=== PATIENT | female | born 1990 | race Caucasian/White ===

== ENCOUNTER 2017-11-01 20:02 | Emergency (ER) | payer OTHER ==
[~2017-11-01] VITALS: Ht 165.1 cm; Wt 90.7 kg
[2017-11-01 20:02] VITALS: BP 115/73
[2017-11-01 21:40] LABS: BILIRUBIN,URINE NEG (NEG); CLARITY,URINE CLEAR; COLOR,URINE YELLOW; GLUCOSE,URINE NEG (NEG)
[2017-11-01 21:41] LABS: BACTERIA,URINE 0 /HPF (0-FEW); NITRITE,URINE NEG (NEG); RBC,URINE RARE /HPF (0-2); SQUAMOUS EPITHELIAL CELL,UR OCC /LPF; UROBILINOGEN,URINE 1 mg/dL (0.2 mg/dL)
[2017-11-01 22:06] LABS: BASO # 0.1 x10^3/uL (0.0-0.2); BASO % 1 % (0-3); EOS # 0.2 x10^3/uL (0.0-0.7); EOS % 2 % (0-3); HEMATOCRIT 38.4 % (36.0-47.0); HEMOGLOBIN 13.2 g/dL (12.0-15.5); LYMPH # 2.1 x10^3/uL (1.0-4.8); LYMPH % 20 % (24-48); MEAN CORPUSCULAR HEMOGLOBIN 30 pg (25-35); MEAN CORPUSCULAR HGB CONC 35 g/dL (31-37); MEAN CORPUSCULAR VOLUME 87 fL (79-100); MONO # 0.4 x10^3/uL (0.0-1.1); MONO % 4 % (0-9); NEUT # 7.6 x10^3uL (1.8-7.7); NEUT % 73 % (31-73); PLATELET COUNT 304 x10^3/uL (140-400); RED BLOOD COUNT 4.43 x10^6/uL (3.50-5.40); RED CELL DISTRIBUTION WIDTH 13.8 % (11.5-14.5); WHITE BLOOD COUNT 10.5 x10^3/uL (4.0-11.0)
[2017-11-01 22:21] LABS: ALBUMIN/GLOBULIN RATIO 0.9 (1.0-1.7); CALCIUM 8.9 mg/dL (8.5-10.1); CREATININE 0.6 mg/dL (0.6-1.0); GFR 120.8; POTASSIUM 3.7 mmol/L (3.5-5.1); TOTAL BILIRUBIN 0.5 mg/dL (0.2-1.0); TOTAL PROTEIN 8.4 g/dL (6.4-8.2)
--- NOTE | 2017-11-01 22:58 | RAD ---
LIMITED ABDOMINAL ULTRASOUND History: Right upper quadrant pain and nausea for 3 hours. Comparison: None. Procedure: Transabdominal ultrasound images are obtained. Findings: Visualized pancreas is unremarkable. Liver is increased in echogenicity in echogenicity. No focal hepatic masses are identified. Right hepatic lobe measures 17.8 cm in length. Gallbladder is mildly contracted. No gallbladder wall thickening, pericholecystic fluid, or cholelithiasis is seen. Common bile duct measures normally at 3 mm in diameter. Right kidney measures 12.2 cm in length. There is no evidence of stone or hydronephrosis. Visualized IVC demonstrates normal caliber. Impression: 1. Echogenic liver, compatible with fatty liver disease. 2. No evidence of cholelithiasis or cholecystitis. Electronically signed by: Be Evans MD (11/01/2017 10:55 PM) [facility]
[2017-11-01] MEDS ORDERED: NAPR-695 PO (23:29)
--- NOTE | 2017-11-01 23:29 | PHYS DOC ---
Adult General Chief Complaint Chief Complaint: ABDOMINAL PAIN HPI HPI Patient is a 27-year-old female who started having complaints of found epigastric abdominal pain that started today she also expressing some back pain. Patient denies any vomiting, diarrhea, unusual vaginal discharge, urinary symptoms. Patient also states that she had a little bit of bleeding from her umbilicus but that has stopped by the time to arrival to the ER. No history of trauma, no recent illnesses. Review of Systems Review of Systems Constitutional: Denies fever or chills [] HENT: Denies pain Respiratory: Denies cough or shortness of breath [] Cardiovascular: No chest pain GI: As per history of present illness : Denies dysuria or hematuria or vaginal discharge Musculoskeletal: As per history of present illness Integument: Denies rash or skin lesions [] Neurologic: Denies headache, focal weakness or sensory changes [] All other systems were reviewed and found to be within normal limits, except as documented in this note. Allergies Allergies Allergies Coded Allergies Type Severity Reaction Last Updated Verified No Known Drug Allergies 11/01/17 No Physical Exam Physical Exam Constitutional: Well developed, well nourished, no acute distress, non-toxic appearance. [] HENT: Normocephalic, atraumatic, Eyes: EOMI, conjunctiva normal, no discharge. [] Neck: Normal range of motion, trachea midline, no stridor. [] Cardiovascular:Heart rate regular rhythm, no murmur, equal pulses, normal perfusion Lungs & Thorax: Bilateral breath sounds clear to auscultation no tachypnea Abdomen: Bowel sounds normal, soft, no is distention, no masses, no pulsatile masses. Tenderness to palpation right upper quadrant without guarding or rebound. Area of umbilicus with no active bleeding, no signs of laceration, no signs of infection Skin: Warm, dry, no erythema, no rash. [] Back: No tenderness, no CVA tenderness. [] Extremities: No tenderness, no cyanosis, no clubbing, ROM intact, no edema. [] Neurologic: Alert and oriented X 3, normal motor function, ambulates in the emergency department with normal gait and without assistance, no focal deficits noted. [] Psychologic: Affect normal, judgement normal, mood normal. [] Current Patient Data Lab Results Laboratory Tests Test 11/01/17 20:50 11/01/17 20:59 11/01/17 21:52 Urine Collection Type Unknown Urine Color Yellow Urine Clarity Clear Urine pH 6.0 Urine Specific [place] >=1.030 Urine Protein Neg (NEG-TRACE) Urine Glucose (UA) Neg mg/dL (NEG) Urine Ketones (Stick) Neg mg/dL (NEG) Urine Blood Small (NEG) Urine Nitrite Neg (NEG) Urine Bilirubin Neg (NEG) Urine Urobilinogen Dipstick 1 mg/dL (0.2 mg/dL) Urine Leukocyte Esterase Neg (NEG) Urine RBC Rare /HPF (0-2) Urine WBC 1-4 /HPF (0-4) Urine Squamous Epithelial Cells Occ /LPF Urine Bacteria 0 /HPF (0-FEW) Urine Mucus Slight /LPF POC Urine HCG, Qualitative hcg negative (Negative) White Blood Count 10.5 x10^3/uL (4.0-11.0) Red Blood Count 4.43 x10^6/uL (3.50-5.40) Hemoglobin 13.2 g/dL (12.0-15.5) Hematocrit 38.4 % (36.0-47.0) Mean Corpuscular Volume 87 fL (79-100) Mean Corpuscular Hemoglobin 30 pg (25-35) Mean Corpuscular Hemoglobin Concent 35 g/dL (31-37) Red Cell Distribution Width 13.8 % (11.5-14.5) Platelet Count 304 x10^3/uL (140-400) Neutrophils (%) (Auto) 73 % (31-73) Lymphocytes (%) (Auto) 20 % (24-48) L Monocytes (%) (Auto) 4 % (0-9) Eosinophils (%) (Auto) 2 % (0-3) Basophils (%) (Auto) 1 % (0-3) Neutrophils # (Auto) 7.6 x10^3uL (1.8-7.7) Lymphocytes # (Auto) 2.1 x10^3/uL (1.0-4.8) Monocytes # (Auto) 0.4 x10^3/uL (0.0-1.1) Eosinophils # (Auto) 0.2 x10^3/uL (0.0-0.7) Basophils # (Auto) 0.1 x10^3/uL (0.0-0.2) Sodium Level 139 mmol/L (136-145) Potassium Level 3.7 mmol/L (3.5-5.1) Chloride Level 103 mmol/L (98-107) Carbon Dioxide Level 26 mmol/L (21-32) Anion Gap 10 (6-14) Blood Urea Nitrogen 11 mg/dL (7-20) Creatinine 0.6 mg/dL (0.6-1.0) Estimated GFR (Cockcroft-Gault) 120.8 BUN/Creatinine Ratio 18 (6-20) Glucose Level 91 mg/dL (70-99) Calcium Level 8.9 mg/dL (8.5-10.1) Total Bilirubin 0.5 mg/dL (0.2-1.0) Aspartate Amino Transferase (AST) 14 U/L (15-37) L Alanine Aminotransferase (ALT) 21 U/L (14-59) Alkaline Phosphatase 79 U/L (46-116) Total Protein 8.4 g/dL (6.4-8.2) H Albumin 4.0 g/dL (3.4-5.0) Albumin/Globulin Ratio 0.9 (1.0-1.7) L Lipase 88 U/L (73-393) EKG EKG [] Radiology/Procedures Radiology/Procedures Ultrasound report shows no cholecystitis or cholelithiasis but evidence of fatty liver[] Course & Med Decision Making Course & Med Decision Making Pertinent Labs and Imaging studies reviewed. (See chart for details) 2322 patient is in no distress, patient feels back to baseline. Labs and imaging has been discussed with the patient and the need for close follow-up has been explained, patient agrees to follow-up as directed. Strict return precautions have been discussed with the patient who agrees to follow-up as directed. Patient voices understanding of instructions [] Dragon Disclaimer Dragon Disclaimer This electronic medical record was generated, in whole or in part, using a voice recognition dictation system. Departure Departure: Impression: Primary Impression: Abdominal pain Additional Impression: Fatty liver Disposition: 01 HOME, SELF-CARE Condition: STABLE Patient Instructions: Abdominal Pain (Nonspecific) Additional Instructions: Please follow-up with your doctor or at one of the clinics in the list provided to you for recheck and reevaluation in one to 2 days. If your pain worsens or new concerning symptoms develop or you do not have access to a doctor please return to the ED for recheck and reevaluation Scripts Naproxen (NAPROXEN) 375 Mg Tablet 1 TAB PO TID for 3 Days, #9 TAB 5 Refills Prov: Roman GAFFNEY MD 11/01/17 Problem Qualifiers Roman GAFFNEY MD Nov 01, 2017 23:29
== END 2017-11-01 23:30 | disposition home or self-care (01) ==
LOC: ER 20:02
DX: K76.0 Fatty (change of) liver, not elsewhere classified (principal)
CPT/HCPCS: 36415; 76705; 80053; 81001; 81025; 83690; 85025; 99285-25

== ENCOUNTER 2018-01-08 04:31 | Emergency (ER) | payer OTHER ==
[~2018-01-08] VITALS: Ht 165.1 cm; Wt 90.7 kg
[~2018-01-08 04:31] MED LIST: NAPR-695 PO
[2018-01-08 04:32] VITALS: BP 120/74
--- NOTE | 2018-01-08 05:00 | PHYS DOC ---
Past History Past Medical History: No Pertinent History Past Surgical History: No Surgical History Alcohol Use: None Drug Use: None Adult General Chief Complaint Chief Complaint: SORE THROAT HPI HPI Patient is a 27 year old female who presents with complaint of sore throat for the past 3 days. Patient states that her symptoms have worsened this morning. The patient states she is having pain with swallowing. Patient denies fever or cough. Patient has not taken medications to help with her symptoms. Denies any known sick contacts. Patient rates her pain as 7 out of 10 and describes it as throbbing. Patient states that she started getting pain in both ears tonight. Review of Systems Review of Systems Constitutional: Denies fever or chills [] Eyes: Denies change in visual acuity, redness, or eye pain [] HENT: Sore throat, ear pain[] Respiratory: Denies cough or shortness of breath [] Cardiovascular: Denies chest pain or edema[] GI: Denies abdominal pain, nausea, vomiting, bloody stools or diarrhea [] : Denies dysuria or hematuria [] Musculoskeletal: Denies back pain or joint pain [] Integument: Denies rash or skin lesions [] Neurologic: Denies headache, focal weakness or sensory changes [] All other systems were reviewed and found to be within normal limits, except as documented in this note. Allergies Allergies Allergies Coded Allergies Type Severity Reaction Last Updated Verified No Known Drug Allergies 11/01/17 No Physical Exam Physical Exam Constitutional: Alert, afebrile, appears in moderate discomfort. [] HENT: Normocephalic, atraumatic, bilateral external ears normal, oropharynx erythematous, petechial hemorrhages on soft palate, no oral exudates, nose normal. [] Eyes: PERRLA, EOMI, conjunctiva normal, no discharge. [] Neck: Normal range of motion, tender anterior cervical lymphadenopathy bilaterally, supple, no stridor. [] Cardiovascular:Heart rate regular rhythm, no murmur [] Lungs & Thorax: Bilateral breath sounds clear to auscultation [] Abdomen: Bowel sounds normal, soft, no tenderness, no masses, no pulsatile masses. [] Skin: Warm, dry, no erythema, no rash. [] Back: No tenderness, no CVA tenderness. [] Extremities: No tenderness, no cyanosis, no clubbing, ROM intact, no edema. [] Neurologic: Alert and oriented X 3, normal motor function, normal sensory function, no focal deficits noted. [] Current Patient Data Vital Signs Vital Signs Date Time Temp Pulse Resp B/P (MAP) Pulse Ox O2 Delivery O2 Flow Rate FiO2 01/08/18 04:32 98.9 92 20 95 Room Air Lab Results Rapid strep: Positive EKG EKG Not performed[] Radiology/Procedures Radiology/Procedures Not performed[] Course & Med Decision Making Course & Med Decision Making Pertinent Labs and Imaging studies reviewed. (See chart for details) Rapid strep test positive in the emergency department. Patient elected to receive Bicillin LA in the emergency department which was given. Patient also given Decadron to help with pharyngeal inflammation and pain. Advised to continue on Tylenol and ibuprofen as needed at home. Recommended follow-up with primary doctor in 3-4 days of symptoms are not improving and return emergency department for any worsening symptoms. Patient was understanding and in agreement with treatment plan. Dragon Disclaimer Dragon Disclaimer This electronic medical record was generated, in whole or in part, using a voice recognition dictation system. Departure Departure: Impression: Primary Impression: Strep pharyngitis Disposition: 01 HOME, SELF-CARE Condition: IMPROVED Referrals: NUZHAT NARANJO MD (PCP) Patient Instructions: Strep Throat Additional Instructions: Follow-up with Dr. Naranjo in 3-4 days if symptoms are not improving. Return to emergency department for any worsening symptoms. MELANIA VAUGHAN MD January 08, 2018 05:00
[2018-01-08] MEDS ORDERED: PENICILLIN G BENZATHINE LA 1,200,000 UNIT/2 ML DISP.SYRIN. IM ONE (05:30)
[2018-01-08] MEDS ORDERED: DEXAMETHASONE SOD PHOS 10 MG/ML VIAL PO ONE (05:30)
== END 2018-01-08 06:00 | disposition home or self-care (01) ==
LOC: ER 04:31
DX: J02.0 Streptococcal pharyngitis (principal); H92.03 Otalgia, bilateral
CPT/HCPCS: 87880; 96372; 99283; J0561; J1100

== ENCOUNTER 2018-05-16 17:58 | Emergency (ER) | payer SELFPAY ==
[~2018-05-16] VITALS: Ht 165.1 cm; Wt 90.7 kg
[2018-05-16 18:21] VITALS: BP 152/89
[2018-05-16] MEDS ORDERED: DEXAMETHASONE 4 MG TABLET PO ONE (18:45)
[2018-05-16] MEDS ORDERED: ONDANSETRON ODT 4 MG TAB.RAPDIS PO ONE (18:45)
[2018-05-16] MEDS ORDERED: AMOX1TAB61 PO (18:46)
[2018-05-16] MEDS ORDERED: PRED20TA PO (18:46)
--- NOTE | 2018-05-16 18:46 | PHYS DOC ---
Past History Past Medical History: No Pertinent History Past Surgical History: No Surgical History Alcohol Use: None Drug Use: None Adult General Chief Complaint Chief Complaint: EARACHE/EAR PAIN HPI HPI Patient is a 27-year-old otherwise healthy female who presents with a one-day history of left ear pain. Patient describes pain as pressure and notes a severity of 7 out of 10. Patient denies any radiation of the pain. Patient notes that she has had nasal congestion, sore throat and a cough since Saturday. Patient denies any tinnitus, dizziness, trauma, head pain, or change in vision. Patient notes she had a fever of 101F 2 days ago which she treated with Tylenol. Reports fever has improved since. Patient notes she took Tylenol today for the ear pain without relief. She notes she is currently on her menstrual period. Patient seen earlier today at [facility] for the left ear pain patient notes she was not prescribed anything and just told to take [id number] decongestants. Review of Systems Review of Systems Constitutional: Reports fever or chills which is now resolved [] Eyes: Denies change in visual acuity, redness, or eye pain [] HENT: Notes nasal congestion and sore throat, reports earache Respiratory: Notes cough. Denies shortness of breath [] Cardiovascular: Denies chest pain or palpitations[] GI: Denies abdominal pain, vomiting, bloody stools or diarrhea [] : Denies dysuria or hematuria [] Musculoskeletal: Denies back pain or joint pain [] Integument: Denies rash or skin lesions [] Neurologic: Notes headache. Denies focal weakness or sensory changes [] Complete systems were reviewed and found to be within normal limits, except as documented in this note. Current Medications Current Medications Current Medications Medications (Trade) Dose Ordered Sig/[facility] Start Time Stop Time Status Last Admin Dose Admin Dexamethasone (Decadron) 10 mg 1X ONCE 05/16/18 18:45 05/16/18 18:46 Ondansetron HCl (Zofran Odt) 4 mg 1X ONCE 05/16/18 18:45 05/16/18 18:46 Allergies Allergies Allergies Coded Allergies Type Severity Reaction Last Updated Verified No Known Drug Allergies 11/01/17 No Physical Exam Physical Exam Constitutional: Well developed, well nourished, no acute distress, non-toxic appearance. [] HENT: Normocephalic, atraumatic. Right ear nonpainful, TM intact nonerythematous , clear. Left ear no pain in external canal, TM slightly erythematous, middle ear fluid looks slightly cloudy. Oropharynx moist, no oral exudates, nose normal. [] Eyes: PERRL, EOMI, conjunctiva normal, no discharge. [] Neck: Normal range of motion, no tenderness, supple, no stridor. [] Cardiovascular:Heart rate regular rhythm, no murmur [] Lungs & Thorax: Bilateral breath sounds clear to auscultation [] Skin: Warm, dry, no erythema, no rash. [] Extremities: No tenderness,ROM intact, no edema. [] Neurologic: Alert and oriented X 3, no focal deficits noted. [] Psychologic: Affect normal, judgement normal, mood normal. [] Current Patient Data Vital Signs Vital Signs Date Time Temp Pulse Resp B/P (MAP) Pulse Ox O2 Delivery O2 Flow Rate FiO2 05/16/18 18:21 Room Air 05/16/18 18:21 98.6 55 20 99 EKG EKG [] Radiology/Procedures Radiology/Procedures [] Course & Med Decision Making Course & Med Decision Making 27-year-old otherwise healthy female presenting with a one-day history of left ear pain. Patient notes she has had URI-like symptoms since Saturday. Patient seen previously today at [facility]. Left ear shows mildly increased erythema and mild clouding of middle ear fluid. Patient given dose of Decadron in the ED and prescribed a 4 day course of steroids for symptom control. Patient also given 1 dose of Zofran ODT for nausea in the ED. Patient prescribed empiric antibiotics with instructions to watch and wait 48 hrs. If symptoms resolved, patient is to hold antibiotics. If symptoms persist, patient is to take antibiotics as prescribed. Patient stable for discharge with outpatient follow-up with PCP. Discussed findings and plan with patient, who acknowledges understanding and agreement. [] Dragon Disclaimer Dragon Disclaimer This electronic medical record was generated, in whole or in part, using a voice recognition dictation system. Departure Departure: Impression: Primary Impression: Otalgia of left ear Disposition: 01 HOME, SELF-CARE Condition: STABLE Referrals: NUZHAT NARANJO MD (PCP) Patient Instructions: Otalgia Additional Instructions: Hold antibiotics for 48 hours. If symptoms worsen or for fever > 100.3 F after 48 hours then start antibiotics as prescribed. Scripts Prednisone (PREDNISONE) 20 Mg Tablet 1 TAB PO BID, #8 TAB Start on 05/17/18 Prov: CRISTHIAN PAREKH DO 05/16/18 Amoxicillin/Potassium Clav (AUGMENTIN 875-125 TABLET) 1 Each Tablet 1 TAB PO BID, #14 TAB Prov: CRISTHIAN PAREKH DO 05/16/18 CRISTHIAN PAREKH DO May 16, 2018 18:46
== END 2018-05-16 19:00 | disposition home or self-care (01) ==
LOC: ER 17:58
DX: H92.02 Otalgia, left ear (principal); J02.9 Acute pharyngitis, unspecified; R09.81 Nasal congestion
CPT/HCPCS: 99283; J8540; Q0162

== ENCOUNTER 2018-06-30 16:14 | Emergency (ER) | payer SELFPAY ==
[~2018-06-30] VITALS: Ht 157.5 cm; Wt 98.6 kg
[~2018-06-30 16:14] MED LIST changes: +AMOX1TAB61 PO; +PRED20TA PO
[2018-06-30] MEDS ORDERED: IV NORMAL SALINE 1,000ML 1,000 ML IV SCH (16:41)
[2018-06-30] MEDS ORDERED: KETOROLAC 30 MG/ML VIAL. IV ONE (17:15)
[2018-06-30] MEDS ORDERED: ONDANSETRON PF 4 MG/2 ML VIAL. IV ONE (17:15)
[2018-06-30 17:18] LABS: BASO % 0 % (0-3); EOS % 0 % (0-3); HEMATOCRIT 39.8 % (36.0-47.0); HEMOGLOBIN 13.5 g/dL (12.0-15.5); LYMPH # 0.9 x10^3/uL (1.0-4.8); LYMPH % 11 % (24-48); MEAN CORPUSCULAR HEMOGLOBIN 29 pg (25-35); MEAN CORPUSCULAR HGB CONC 34 g/dL (31-37); MEAN CORPUSCULAR VOLUME 87 fL (79-100); MONO # 0.3 x10^3/uL (0.0-1.1); MONO % 4 % (0-9); NEUT # 6.4 x10^3uL (1.8-7.7); NEUT % 84 % (31-73); PLATELET COUNT 305 x10^3/uL (140-400); RED BLOOD COUNT 4.59 x10^6/uL (3.50-5.40); RED CELL DISTRIBUTION WIDTH 13.1 % (11.5-14.5); WHITE BLOOD COUNT 7.6 x10^3/uL (4.0-11.0)
[2018-06-30 17:21] LABS: INFLUENZA A PATIENT NEGATIVE (NEGATIVE); INFLUENZA B PATIENT NEGATIVE (NEGATIVE)
--- NOTE | 2018-06-30 17:39 | PHYS DOC ---
Past History Past Medical History: No Pertinent History Past Surgical History: No Surgical History Alcohol Use: None Drug Use: None Adult General Chief Complaint Chief Complaint: NAUSEA/VOMITING/DIARRHEA HPI HPI Patient is a 27 year old female who presents with complaining of nausea and vomiting and diarrhea since this morning. Patient states she woke up at 4 AM and had total of 4 episodes of vomiting and 5 or 6 episodes of nonbloody diarrhea. Patient complaining of sore throat, earache, body ache, generalized weakness and chills without fever. Patient denies urinary symptoms, vaginal bleeding or discharge, . Patient complaining of upper abdominal pain during episodes of vomiting but denies constant abdominal pain. Review of Systems Review of Systems Constitutional: Denies fever, reports chills [] Eyes: Denies change in visual acuity, redness, or eye pain [] HENT: Reports nasal congestion or sore throat Respiratory: Reports cough and shortness of breath Cardiovascular: No additional information not addressed in HPI [] GI: Reports abdominal pain, nausea, vomiting, diarrhea [] : Denies dysuria or hematuria [] Musculoskeletal: Denies back pain or joint pain [] Integument: Denies rash or skin lesions [] Neurologic: Denies headache, focal weakness or sensory changes [] Endocrine: Denies polyuria or polydipsia [] All other systems were reviewed and found to be within normal limits, except as documented in this note. Current Medications Current Medications Current Medications Medications (Trade) Dose Ordered Sig/[facility] Start Time Stop Time Status Last Admin Dose Admin Ketorolac Tromethamine (Toradol 30mg Vial) 30 mg 1X ONCE 06/30/18 17:15 06/30/18 17:16 DC 06/30/18 17:08 30 MG Ondansetron HCl (Zofran) 4 mg 1X ONCE 06/30/18 17:15 06/30/18 17:16 DC 06/30/18 17:08 4 MG Sodium Chloride 1,000 ml @ 1,000 mls/hr Q1H 06/30/18 16:41 06/30/18 17:40 06/30/18 17:08 1,000 MLS/HR Allergies Allergies Allergies Coded Allergies Type Severity Reaction Last Updated Verified No Known Drug Allergies 11/01/17 No Physical Exam Physical Exam Constitutional: Well developed, well nourished, moderate distress, non-toxic appearance, febrile. [] HENT: Normocephalic, atraumatic, bilateral external ears normal, oropharynx dry , no oral exudates, nose normal. [] Eyes: PERRLA, EOMI, conjunctiva normal, no discharge. [] Neck: Normal range of motion, no tenderness, supple, no stridor. [] Cardiovascular: Tachycardia, no murmur [] Lungs & Thorax: Bilateral breath sounds clear to auscultation [] Abdomen: Bowel sounds normal, soft, no tenderness, no masses, no pulsatile masses. [] Skin: Warm, dry, no erythema, no rash. [] Back: No tenderness, no CVA tenderness. [] Extremities: No tenderness, no cyanosis, no clubbing, ROM intact, no edema. [] Neurologic: Alert and oriented X 3, normal motor function, normal sensory function, no focal deficits noted. [] Psychologic: Affect normal, judgement normal, mood normal. [] Current Patient Data Vital Signs Vital Signs Date Time Temp Pulse Resp B/P (MAP) Pulse Ox O2 Delivery O2 Flow Rate FiO2 06/30/18 16:15 100.1 104 24 124/73 (90) 96 Room Air Lab Results Laboratory Tests Test 06/30/18 17:00 White Blood Count 7.6 x10^3/uL (4.0-11.0) Red Blood Count 4.59 x10^6/uL (3.50-5.40) Hemoglobin 13.5 g/dL (12.0-15.5) Hematocrit 39.8 % (36.0-47.0) Mean Corpuscular Volume 87 fL (79-100) Mean Corpuscular Hemoglobin 29 pg (25-35) Mean Corpuscular Hemoglobin Concent 34 g/dL (31-37) Red Cell Distribution Width 13.1 % (11.5-14.5) Platelet Count 305 x10^3/uL (140-400) Neutrophils (%) (Auto) 84 % (31-73) H Lymphocytes (%) (Auto) 11 % (24-48) L Monocytes (%) (Auto) 4 % (0-9) Eosinophils (%) (Auto) 0 % (0-3) Basophils (%) (Auto) 0 % (0-3) Neutrophils # (Auto) 6.4 x10^3uL (1.8-7.7) Lymphocytes # (Auto) 0.9 x10^3/uL (1.0-4.8) L Monocytes # (Auto) 0.3 x10^3/uL (0.0-1.1) Eosinophils # (Auto) 0.0 x10^3/uL (0.0-0.7) Basophils # (Auto) 0.0 x10^3/uL (0.0-0.2) EKG EKG [] Radiology/Procedures Radiology/Procedures [] Impressions: Diagnosis Viral gastroenteritis Course & Med Decision Making Course & Med Decision Making Pertinent Labs and Imaging studies are pending. @1800: Evaluation of patient in ER showed 27-year-old female patient with complaining of nausea and vomiting and diarrhea and cough and congestion and sore throat since this morning. Patient had negative flu test. Patient had temperature of 100.1 and tachycardia. Patient treated with IV fluid and Zofran and Toradol and felt better. UA and CMP is pending. Patient care transferred to Dr. Noriega at 1800. I explained to the patient the results of the blood work she feels so much better requested to go home I advised her to continue to drink and water and Gatorade to take Zofran for nausea and vomiting and ibuprofen and Tylenol for fever Dragon Disclaimer Dragon Disclaimer This electronic medical record was generated, in whole or in part, using a voice recognition dictation system. Departure Departure: Disposition: 01 HOME, SELF-CARE Condition: GOOD Referrals: NUZHAT NARANJO MD (PCP) Scripts Ondansetron (ZOFRAN ODT) 4 Mg Tab.rapdis 1 TAB SL Q8HRS for vomiting, #15 TAB Prov: CHINO CERVANTES MD 06/30/18 JOAN ELIZONDO MD Jun 30, 2018 17:39 CHINO CERVANTES MD Jun 30, 2018 19:15
[2018-06-30 18:27] LABS: ALBUMIN 3.5 g/dL (3.4-5.0); ALBUMIN/GLOBULIN RATIO 0.9 (1.0-1.7); CALCIUM 8.2 mg/dL (8.5-10.1); CREATININE 0.6 mg/dL (0.6-1.0); GFR 120.8; POTASSIUM 3.3 mmol/L (3.5-5.1); TOTAL BILIRUBIN 0.8 mg/dL (0.2-1.0); TOTAL PROTEIN 7.3 g/dL (6.4-8.2)
[2018-06-30] MEDS ORDERED: ONDA4TAB10 SL (19:14)
[2018-06-30 19:28] VITALS: BP 120/81
== END 2018-06-30 19:28 | disposition home or self-care (01) ==
LOC: ER 16:14
DX: R11.2 Nausea with vomiting, unspecified (principal); R19.7 Diarrhea, unspecified; J02.9 Acute pharyngitis, unspecified; R10.10 Upper abdominal pain, unspecified; R53.1 Weakness
CPT/HCPCS: 36415; 80053; 83690; 85025; 87804; 96361; 96374; 96375; 99284; J1885; J2405; J7030

== ENCOUNTER 2021-03-23 12:01 | Emergency (ER) | payer SELFPAY ==
[~2021-03-23] VITALS: Ht 157.5 cm; Wt 98.6 kg
[~2021-03-23 12:01] MED LIST changes: +ONDA4TAB10 SL
[2021-03-23 12:13] VITALS: BP 142/83
--- NOTE | 2021-03-23 13:22 | PHYS DOC ---
Past History Past Medical History: Asthma (LUIS F CONTRERAS APRN) Past Surgical History: (LUIS F CONTRERAS APRN) Alcohol Use: None Drug Use: None (LUIS F CONTRERAS APRN) General Adult EDM: Chief Complaint: COUGH HPI: HPI: Patient is a 30-year-old female being seen in the ER today for multiple complaints. Patient is complaining of fever, productive cough, shortness of breath, diarrhea, nasal congestion and drainage, midsternal chest pain that started last night. Patient describes her chest pain as a tightness that is a constant pain. She rates it 10 out of 10. It does not radiate. Patient reports positive sick exposures. She reports that her sister who was 32 years old suddenly in her sleep last week they are doing an autopsy, her sister did have a positive Covid exposure. Patient denies any family history of heart disease. Patient's room air saturation is 96%. She is febrile in the ER. Patient reports ability to eat and drink okay. She denies nausea, vomiting, loss of taste or smell. She did not get her COVID-19 vaccine. (LUIS F CONTRERAS APRN) Review of Systems: Review of Systems: 14 body systems of the review of systems have been reviewed. See HPI for pertinent positive and negative responses, otherwise all other systems are n egative, nonpertinent or noncontributory (LUIS F CONTRERAS APRN) Allergies: Allergies: Allergies Coded Allergies Type Severity Reaction Last Updated Verified No Known Drug Allergies 11/01/17 No (LUIS F CONTRERAS APRN) Physical Exam: PE: Constitutional: Well developed, well nourished, no acute distress, non-toxic appearance. [] HENT: Normocephalic, atraumatic, bilateral external ears normal, oropharynx moist, no oral exudates, pharynx is erythematous, postnasal drainage, cobblestoning appearance, swollen nasal turbinates with drainage. [] Eyes: PERRL, conjunctiva normal, no discharge. [] Neck: Normal range of motion, no tenderness, supple, no stridor, no cervical lymphadenopathy. [] Cardiovascular:Heart rate regular rhythm, no murmur, chest pain is reproducible [] Lungs & Thorax: Bilateral breath sounds clear to auscultation [] Abdomen: Bowel sounds normal, soft, no tenderness, no masses, no pulsatile masses. [] Skin: Warm, dry, no erythema, no rash. [] Back: Normal range of motion Extremities: No tenderness, no cyanosis, no clubbing, ROM intact, no edema. [] Neurologic: Alert and oriented X 3, normal motor function, normal sensory function, no focal deficits noted. [] Psychologic: Affect normal, judgement normal, mood normal. [] (LUIS F CONTRERAS APRN) Current Patient Data: Vital Signs: Vital Signs Date Time Temp Pulse Resp B/P (MAP) Pulse Ox O2 Delivery O2 Flow Rate FiO2 03/23/21 12:13 101.4 96 20 142/83 96 Room Air (LUIS F CONTRERAS APRN) EKG: EKG: EKG performed at 1325 by ER staff showed sinus rhythm, no STEMI read by Dr. Gonzalez at 1332 [] (LUIS F CONTRERAS APRN) Radiology/Procedures: Radiology/Procedures: PROCEDURE: PORTABLE CHEST 1V AP chest. HISTORY: Short of breath AP view was taken of the chest. Patient's taken a poor inspiration. There are no acute infiltrates. There is no effusion. IMPRESSION: 1. Poor inspiration. 2. No acute infiltrates. Electronically signed by: Reuben Penaloza MD (03/23/2021 1:40 PM) [id number] DICTATED AND SIGNED BY: REUBEN PENALOZA MD DATE: 03/23/21 1339 CC: NUZHAT NARANJO MD; EMERGENCY,DEPARTMENT; LUIS F CONTRERAS APRN ~MTH0 0 [] (LUIS F CONTRERAS APRN) Heart Score: C/O Chest Pain: Yes HEART Score for Chest Pain: HEART Score for Chest Pain Response (Comments) Value History Slighlty/Non-Suspicious 0 ECG Normal 0 Age < 45 0 Risk Factors No Risk Factors 0 Troponin < Normal Limit 0 Total 0 Risk Factors: Risk Factors: DM, Current or recent (<one month) smoker, HTN, HLP, family history of CAD, obesity. Risk Scores: Score 0 - 3: 2.5% MACE over next 6 weeks - Discharge Home Score 4 - 6: 20.3% MACE over next 6 weeks - Admit for Clinical Observation Score 7 - 10: 72.7% MACE over next 6 weeks - Early Invasive Strategies (LUIS F CONTRERAS APRN) Course & Med Decision Making: Course & Med Decision Making Pertinent Labs and Imaging studies reviewed. (See chart for details) Patient is a 30-year-old female being seen in the ER for multiple complaints including fever, cough, shortness of breath, chest pain, diarrhea. Blood work was performed in the ER. Patient was Covid tested and this is pending. Chest x-ray was performed that showed no acute findings. Blood work was unremarkable. Patient treated with Tylenol and ibuprofen. Patient has a history of asthma. She is given a DuoNeb treatment in the ER today. I discussed with patient all findings and diagnostic testing as well as the need to follow-up with PCP for further evaluation and treatment or return to the ER if any new or worsening symptoms. Strict return precautions were also discussed at length. Patient voiced understanding and agreement with the plan. Patient is hemodynamically stable at the time of disposition. (LUIS F CONTRERAS APRN) Dragon Disclaimer: Dragon Disclaimer: This electronic medical record was generated, in whole or in part, using a voice recognition dictation system. (LUIS F CONTRERAS APRN) Attending Co-Sign The patient was seen and interviewed as well as examined at the bedside. The chart was reviewed. The case was discussed. Agree with the plan of care. (LY GONZALEZ DO) Departure Departure: Impression: Primary Impression: Cough Additional Impression: Person under investigation for COVID-19 Disposition: 01 HOME / SELF CARE / HOMELESS Condition: GOOD Referrals: NUZHAT NARANJO MD (PCP) Patient Instructions: Cough, Adult Additional Instructions: You were seen for shortness of breath, cough, fever, diarrhea. Your physical exam was reassuring. Your chest x-ray was normal. Your blood work was unremarkable. We tested you for COVID-19 but this test does not come back for 1 to 2 days. In the meantime you will need to quarantine yourself at home away from all other individuals, especially those who are elderly or have any other chronic health issues or any one with immunocompromise status. You can take Tylenol or ibuprofen for your pain or fevers. Please make sure that you are taking your asthma medications as directed. If you continue to have diarrhea you may take Imodium [id number]. You should return to the ER if you develop worsening cough, shortness of breath, chest pain, or any other new or concerning symptoms. If your test does come back positive we will need to quarantine yourself for 10 days until symptom free. You should make sure to drink plenty of fluids and get plenty of rest. EMERGENCY DEPARTMENT GENERAL DISCHARGE INSTRUCTIONS Thank you for coming to [facility] (ED) today and trusting us with you care. We trust that you had a positivie experience in our Emergency Department. If you wish to speak to the department management, you may call the director at [phone]. YOUR FOLLOW UP INSTRUCTIONS ARE FOLLOWS: 1. Do you have a private Doctor? If you do not have a private doctor, please ask for a resource list of physicians or clinics that may be able to assist you with follow up care. 2. The Emergency Physician has interpreted your x-rays. The X-Ray specialist will also review them. If there is a change in the findings, you will be notified in 48 hours when at all possible. 3. A lab test or culture has been done, your results will be reviewed and you will be notified if you need a change in treatment. ADDITIONAL INSTRUCTIONS AND INFORMATION: 1. Your care today has been supervised by a physician who is specially trained in emergency care. Many problems require more than one evaluation for a complete diagnosis and treatment. We recommend that you schedule your follow up appointment as recommended to ensure complete treatment of you illness or injury. If you are unable to obtain follow up care and continue to have a problem, or if your condition worsens, we recommend that you return to the ED. 2. We are not able to safely determine your condition over the phone nor are we able to give sound medical advice over the phone. For these safety reasons, if you call for medical advice we will ask you to come to the ED for further evaluation. 3. If you have any questions regarding these discharge instructions please call the ED at [phone]. SAFETY INFORMATION: In the interest of safety, wellness, and injury prevention; we encourage you to wear your sealbelt, if you smoke; quite smoking, and we encourage family to use a protective helmet for bicycling and other sporting events that present an increased risk for head injury. IF YOUR SYMPTOMS WORSEN OR NEW SYMPTOMS DEVELOP, OR YOU HAVE CONCERNS ABOUT YOUR CONDITION; OR IF YOUR CONDITION WORSENS WHILE YOU ARE WAITING FOR YOUR FOLLOW UP A PPOINTMENT; EITHER CONTACT YOUR PRIMARY CARE DOCTOR, THE PHYSICIAN WHOSE NAME AND NUMBER YOU WERE GIVEN, OR RETURN TO THE ED IMMEDIATELY. LUIS F CONTRERAS APRN Mar 23, 2021 13:22 LY GONZALEZ DO Mar 24, 2021 18:07
[2021-03-23] MEDS ORDERED: ACETAMINOPHEN 325 MG TABLET PO ONE (13:30)
[2021-03-23] MEDS ORDERED: IBUPROFEN 600 MG TABLET. PO ONE (13:30)
--- NOTE | 2021-03-23 13:37 | EKG ---
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
--- NOTE | 2021-03-23 13:42 | RAD ---
AP chest. HISTORY: Short of breath AP view was taken of the chest. Patient's taken a poor inspiration. There are no acute infiltrates. T here is no effusion. IMPRESSION: 1. Poor inspiration. 2. No acute infiltrates. Electronically signed by: Reuben Penaloza MD (03/23/2021 1:40 PM) [id number]
[2021-03-23 13:52] LABS: BASO % 1 % (0-3); EOS # 0.1 x10^3/uL (0.0-0.7); EOS % 2 % (0-3); HEMATOCRIT 37.9 % (36.0-47.0); HEMOGLOBIN 12.6 g/dL (12.0-15.5); LYMPH # 0.8 x10^3/uL (1.0-4.8); LYMPH % 14 % (24-48); MEAN CORPUSCULAR HEMOGLOBIN 29 pg (25-35); MEAN CORPUSCULAR HGB CONC 33 g/dL (31-37); MEAN CORPUSCULAR VOLUME 89 fL (79-100); MONO # 0.5 x10^3/uL (0.0-1.1); MONO % 9 % (0-9); NEUT # 4.4 x10^3uL (1.8-7.7); NEUT % 75 % (31-73); PLATELET COUNT 252 x10^3/uL (140-400); RED BLOOD COUNT 4.29 x10^6/uL (3.50-5.40); RED CELL DISTRIBUTION WIDTH 13.4 % (11.5-14.5); WHITE BLOOD COUNT 5.8 x10^3/uL (4.0-11.0)
[2021-03-23 13:58] LABS: CALCIUM 8.8 mg/dL (8.5-10.1); CREATININE 0.7 mg/dL (0.6-1.0); GFR 98.9; POTASSIUM 4.1 mmol/L (3.5-5.1)
[2021-03-23] MEDS ORDERED: IPRATRPIUM/ALBUTEROL 0.5/2.5MG 3 ML NEBU. NEB ONE (14:30)
--- NOTE | 2021-03-24 16:09 | NUR ---
IP: Informed pt of positive covid test and the need to quarantine for 10 days. Pt verbalized understanding
== END 2021-03-23 14:45 | disposition home or self-care (01) ==
LOC: ER 12:01
DX: U07.1 COVID-19 (principal); J45.909 Unspecified asthma, uncomplicated; Z98.890 Other specified postprocedural states
CPT/HCPCS: 71045; 80048; 84484; 85025; 93005; 99285; U0005